=== PATIENT | male | born 1995 | race Caucasian/White ===

== ENCOUNTER 2017-05-27 20:53 | Inpatient (IN) | payer OTHER ==
[~2017-05-27] VITALS: Ht 170.2 cm; Wt 59.5 kg
[2017-05-27] MEDS ORDERED: NS 1,000 ML IV ONE ×2 (21:15→23:30)
[2017-05-27 21:25] LABS: BASO % 0.2 % (0.0-1.0); EOS # 0.1 K/mm3 (0.0-0.50); EOS % 0.5 % (0.0-3.0); LARGE UNSTAINED CELL # 0.1 K/mm3 (0.0-0.4); LARGE UNSTAINED CELL % 0.3 % (0.0-4.0); LYMPH # 1.6 K/mm3 (1.5-6.5); LYMPH % 6.6 % (24.0-44.0); MEAN CORPUSCULAR HEMOGLOBIN 30.8 pg (27.0-33.0); MEAN CORPUSCULAR HGB CONC 35.2 g/dl (32.0-36.5); MEAN CORPUSCULAR VOLUME 87.5 fl (80.0-96.0); NEUTROPHILS # 20.9 K/mm3 (1.8-7.7); NEUTROPHILS % 88.4 % (36.0-66.0); PLATELET COUNT, AUTOMATED 226 k/mm3 (150-450); RED CELL DISTRIBUTION WIDTH 12.1 % (11.5-14.5); WHITE BLOOD COUNT 23.7 K/mm3 (4.0-10.0)
[2017-05-27 21:25] LABS: ABG BASE EXCESS -2.6 (-2.0-2.0); ABG HCO3 22.7 MEQ/L (22.0-26.0); ABG PARTIAL PRESSURE O2 90.6 mmHg (75.0-100.0); ABG STANDARD HCO3 22.3 MEQ/L (22.0-26.0); ABG pH (ARTERIAL) 7.361 UNITS (7.350-7.450)
[2017-05-27 21:54] LABS: OSMOLALITY SERUM 290 MOSM/KG (275-295)
[2017-05-27 22:04] LABS: METHADONE URINE NEGATIVE (NEGATIVE)
[2017-05-27 22:34] LABS: ALBUMIN 4.5 GM/DL (3.2-5.2); ALBUMIN/GLOBULIN RATIO 1.41 (1.00-1.93); ALKALINE PHOSPHATASE 79 U/L (45-117); ALT/SGPT 23 U/L (12-78); ANION GAP 9 MEQ/L (8-16); AST/SGOT 19 U/L (15-37); BILIRUBIN,DIRECT 0.1 MG/DL (0.0-0.2); BILIRUBIN,TOTAL 0.5 MG/DL (0.2-1.0); BLOOD UREA NITROGEN 19 MG/DL (7-18); CALCIUM LEVEL 9.1 MG/DL (8.5-10.1); CARBON DIOXIDE LEVEL 26 MEQ/L (21-32); CHLORIDE LEVEL 102 MEQ/L (98-107); CREATININE FOR GFR 1.06 MG/DL (0.70-1.30); GLUCOSE, FASTING 93 MG/DL (70-105); POTASSIUM SERUM 3.4 MEQ/L (3.5-5.1); SODIUM LEVEL 137 MEQ/L (136-145); TOTAL PROTEIN 7.7 GM/DL (6.4-8.2)
[2017-05-28] MEDS ORDERED: NS 1,000 ML IV ONE (02:00)
[2017-05-28] MEDS ORDERED: NS 1,000 ML IV SCH (05:37)
[2017-05-28] MEDS ORDERED: ACETAMINOPHEN TAB 650MG DOSE (2X325MG) PO PRN (05:45)
--- NOTE | 2017-05-28 05:59 | HPEPDOC ---
General Date of Admission 05/28/2017 Other Providers PCP: [facility] Attending Physician: KAREL REYES MD Chief Complaint The patient is a 22-year-old male admitted with a reason for visit of Seizure/ Overdose. Source: Patient, Family History of Present Illness Mr. Connors is a 22-year-old male who is accompanied in the room by his . Apparently he has been going through quite a stressful time, and his recently had a miscarriage, therefore he was feeling quite depressed and decided to imbibe a 5 ounce bottle of cough syrup DM, which apparently did not provide sufficient inebriation, therefore he took 2 additional boxes of Coricidin HBP (both with the active ingredient dextromethorphan). Thereafter he got in the bed with his , became stiff, and had seizure-like activity, so he is brought to the emergency department for further evaluation. When I asked the patient what he remembers he says "I don't think I'm in a state of mind to answer that question" and then he and his tell me that he apparently was having hallucinations of aliens earlier, and he cannot remember anything from the event. He tells me that he took the medications to get high, however apparently he did mention to one nurse that he may have done it with an attempt to kill himself, therefore he does tell an inconsistent story. 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 Otherwise no medical history Surgical History None Family History Apparently there is no documented history in his family of mental disease or psychiatric history, but he suspects that some individuals of his family may have psychiatric problems. He also states that multiple members of his extended family suffer from alcoholism. Otherwise, no history of diabetes, stroke, heart disease. Social History * Smoker: cigarettes (socially) Alcohol: occationally Drugs: denies, marijuana (he has tried marijuana in past, but does not use this regularly) Psychosocial History: No pertinent psych hx Lives at home with his , no children. 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 Review of Symptoms Constitutional: Denies: Chills, Fever, Night Sweats Eyes: Denies: Pain, Vision change Skin: Denies: Rash, Lesions, Breakdown Pulmonary: Denies: Dyspnea, Cough Cardiovascular: Denies: Chest Pain, Orthopnea, Paroxysmal Noc. Dyspnea, Lt Headedness Gastrointestinal: Denies: Nausea, Vomiting, Abdominal Pain, Diarrhea Genitourinary: Denies: Dysuria, Frequency, Incontinence, Retention Hematologic: Denies: Bruising, Bleeding Excessively Neurological: Denies: Weakness, Numbness, Change in speech, Confusion Psych: Reports: Mood Normal, Denies: Depression, Memory Issues Physical Examination General Exam: Positive: Alert, Cooperative, No Acute Distress Eye Exam: Positive: PERRLA, Conjunctiva & lids normal, EOMI, Negative: Sclera icteric ENT Exam: Positive: Atraumatic, Mucous membr. moist/pink, Pharynx Normal Neck Exam: Positive: Supple, Negative: JVD, thyromegaly Chest Exam: Positive: Clear to auscultation, Normal air movement Heart Exam: Positive: Tachycardic, Regular Rhythm, Normal S1, Normal S2, Negative: Murmurs, Rubs Telemetry: Positive: Tachycardia Abdomen Exam: Positive: Normal bowel sounds, Soft, Negative: Tenderness, Hepatospenomegaly Extremity Exam: Positive: Normal pulses, Negative: Clubbing, Cyanosis, Edema Skin Exam: Positive: Nl turgor and temperature, Negative: Breakdown, Lesion Neuro Exam: Positive: Normal Speech, Cranial Nerves 3-12 NL Psych Exam: Positive: Mood NL, Oriented x 3 Vital Signs Vital Signs Date Time Temp Pulse Resp B/P (MAP) Pulse Ox O2 Delivery O2 Flow Rate FiO2 05/28/17 05:31 132 20 95 05/28/17 04:58 132/70 (90) 05/27/17 21:23 98.9 Laboratory Data Labs 24H Laboratory Tests 2 05/27/17 21:10: White Blood Count 23.7H, Red Blood Count 5.28, Hemoglobin 16.3, Hematocrit 46.2 , Mean Corpuscular Volume 87.5, Mean Corpuscular Hemoglobin 30.8, Mean Corpuscular Hemoglobin Concent 35.2, Red Cell Distribution Width 12.1, Platelet Count 226, Neutrophils (%) (Auto) 88.4H, Lymphocytes (%) (Auto) 6.6L, Monocytes (%) (Auto) 4.0, Eosinophils (%) (Auto) 0.5, Basophils (%) (Auto) 0.2, Neutrophils # (Auto) 20.9H, Lymphocytes # (Auto) 1.6, Monocytes # (Auto) 1.0H, Eosinophils # (Auto) 0.1, Basophils # (Auto) 0.0, Large Unclassified Cells % 0.3 , Large Unclassified Cells # 0.1, Anion Gap 9, Osmolality 290, Lactic Acid Level 2.4*H, Calcium Level 9.1, Aspartate Amino Transf (AST/SGOT) 19, Alanine Aminotransferase (ALT/SGPT) 23, Alkaline Phosphatase 79, Total Bilirubin 0.5, Direct Bilirubin 0.1, Total Creatine Kinase 141, Total Protein 7.7, Albumin 4.5 , Albumin/Globulin Ratio 1.41, Thyroid Stimulating Hormone (TSH) 1.790, Salicylates Level < 1.7L, Acetaminophen Level < 2.0L, Ethyl Alcohol Level < 0.003 05/27/17 21:11: Bedside Glucose (Misc Panel) 104 05/27/17 21:18: Blood Gas Bicarbonate Standard 22.3, Arterial Blood pH 7.361, Arterial Blood Partial Pressure CO2 41.0, Arterial Blood Partial Pressure O2 90.6, Arterial Blood Total CO2 24.0, Arterial Blood HCO3 22.7, Arterial Blood Base Excess -2.6L , Arterial Blood Oxygen Saturation 96.2 05/27/17 21:33: Urine Amphetamines Screen NEGATIVE, Urine Benzodiazepines Screen NEGATIVE, Urine Opiates Screen POSITIVEH, Urine Methadone Screen NEGATIVE, Urine Barbiturates Screen NEGATIVE, Urine Phencyclidine Screen POSITIVEH, Urine Cocaine Metabolite Screen NEGATIVE, Urine Cannabinoids Screen NEGATIVE 05/28/17 04:29: Lactic Acid Followup at 4 Hours 1.8 CBC/BMP Laboratory Tests 05/27/17 21:10 Red Blood Count 5.28, Mean Corpuscular Volume 87.5, Mean Corpuscular Hemoglobin 30.8, Mean Corpuscular Hemoglobin Concent 35.2, Red Cell Distribution Width 12.1 , Neutrophils (%) (Auto) 88.4 H, Lymphocytes (%) (Auto) 6.6 L, Monocytes (%) ( Auto) 4.0, Eosinophils (%) (Auto) 0.5, Basophils (%) (Auto) 0.2, Neutrophils # ( Auto) 20.9 H, Lymphocytes # (Auto) 1.6, Monocytes # (Auto) 1.0 H, Eosinophils # (Auto) 0.1, Basophils # (Auto) 0.0 Problems (1) Tachycardia (2) Dextromethorphan overdose Status: Acute Plan / VTE VTE Prophylaxis Ordered?: Yes (Lovenox) Plan Plan The patient does appear to be recovering from his dextromethorphan overdose, he is awake and alert and gives quite a good history when I'm speaking to him. He does have what appears to be an odd affect and strange speech, which may be complicated by the fact that he is a high functioning autistic, but his does state that this is abnormal for him and thinks that it is still the drugs. He also continues to be tachycardic. We will admit him to the PCU for further monitoring. Supportive care only at this time, we will run normal saline. Otherwise, he does not have any medications that he takes at home on a regular basis. It is important to note that dextromethorphan taken in high enough doses can cross react to give a false positive for opiates and PCP, which is consistent with his urine tox screen. Disposition Given that there is a possibility that this may have been an intentional overdose with possible suicidal ideations, he may merit from a psychiatric evaluation prior to discharge. GME ATTESTATION GME ATTESTATION My preceptor for this patient encounter was physically present in the building during the encounter and was fully available. As needed, all aspects of the patient interview, examination, medical decision making process, and medical care plan development were reviewed and approved by the preceptor. Preceptor is aware and concurs with the plan as stated in the body of this note and will attest to such by his/her cosignature. ATTENDING NOTE I have both independently examined this patient as well as reviewed the H&P. I have discussed in detail with the resident the findings and plan of treatment as documented in the residents note. I will continue to follow the patient and offer further guidance to the patients care as necessary during this hospital stay. DARREL Colindres MD, DO May 28, 2017 05:59 KAREL REYES MD May 28, 2017 18:41
[2017-05-28] MEDS ORDERED: POTASSIUM CHLORIDE 10 MEQ SR TABLET PO ONE (06:15)
[2017-05-28] MEDS ORDERED: OXAZEPAM 10 MG CAP PO PRN (06:15)
[2017-05-28] MEDS: KCL 20MEQ in NS 1000ML 1,000 ML IV SCH ×3 (06:20→19:33)
--- NOTE | 2017-05-28 06:39 | ECGEPIP ---
Stationary ECG Study [facility] - ED Test Date: 2017-05-27 Pat Name: IRIS EVANS Department: Room: [place] [address] Gender: M Thread Laster: : 1995 Requested By: BELINDA Ulloa Order Number: [id number] Reading MD: Pernell Lee Measurements Intervals [place] Rate: 145 P: 79 OK: 120 QRS: 100 QRSD: 109 T: 50 QT: 339 QTc: 528 Interpretive Statements ATRIAL FLUTTER, 2:1 RIGHT AXIS DEVIATION INCOMPLETE RIGHT BUNDLE BRANCH BLOCK NONSPECIFIC ST & T-WAVE ABNORMALITY NO PRIORS Electronically Signed On 05-28-2017 6:39:30 EDT by Pernell Lee
[2017-05-28 07:34] LABS: MEAN CORPUSCULAR HEMOGLOBIN 31.3 pg (27.0-33.0); MEAN CORPUSCULAR HGB CONC 35.5 g/dl (32.0-36.5); MEAN CORPUSCULAR VOLUME 88.3 fl (80.0-96.0); RED CELL DISTRIBUTION WIDTH 12.1 % (11.5-14.5); WHITE BLOOD COUNT 11.5 K/mm3 (4.0-10.0)
[2017-05-28 08:09] LABS: ANION GAP 7 MEQ/L (8-16); BLOOD UREA NITROGEN 12 MG/DL (7-18); CALCIUM LEVEL 9.3 MG/DL (8.5-10.1); CARBON DIOXIDE LEVEL 27 MEQ/L (21-32); CHLORIDE LEVEL 105 MEQ/L (98-107); CREATININE FOR GFR 1.15 MG/DL (0.70-1.30); GLUCOSE, FASTING 138 MG/DL (70-105); MAGNESIUM LEVEL 2.1 MG/DL (1.8-2.4); POTASSIUM SERUM 4.1 MEQ/L (3.5-5.1); SODIUM LEVEL 139 MEQ/L (136-145); T UPTAKE 38 % (33-40); THYROXINE (T4) 8.3 UG/DL (6.0-11.6)
[2017-05-28] MEDS ORDERED: ENOXAPARIN 40 MG/0.4 ML SYRINGE (J1650) SC SCH (09:00)
[2017-05-28] MEDS: ENOXAPARIN 40 MG/0.4 ML SYRINGE (J1650) SC SCH (11:37)
[2017-05-28 18:30] VITALS: BP 134/77
[2017-05-28 20:00] VITALS: BP 155/73
[2017-05-28 23:59] VITALS: BP 129/71
[2017-05-29] MEDS: KCL 20MEQ in NS 1000ML 1,000 ML IV SCH (01:35)
[2017-05-29 04:00] VITALS: BP 107/59
[2017-05-29 05:17] LABS: MEAN CORPUSCULAR HEMOGLOBIN 30.6 pg (27.0-33.0); MEAN CORPUSCULAR VOLUME 89.9 fl (80.0-96.0); RED CELL DISTRIBUTION WIDTH 12.2 % (11.5-14.5); WHITE BLOOD COUNT 7.1 K/mm3 (4.0-10.0)
[2017-05-29 05:23] LABS: ANION GAP 5 MEQ/L (8-16); BLOOD UREA NITROGEN 14 MG/DL (7-18); CALCIUM LEVEL 8.7 MG/DL (8.5-10.1); CARBON DIOXIDE LEVEL 28 MEQ/L (21-32); CHLORIDE LEVEL 109 MEQ/L (98-107); CREATININE FOR GFR 1.04 MG/DL (0.70-1.30); GLUCOSE, FASTING 97 MG/DL (70-105); POTASSIUM SERUM 4.3 MEQ/L (3.5-5.1); SODIUM LEVEL 142 MEQ/L (136-145)
[2017-05-29 07:15] VITALS: BP 115/69
[2017-05-29] MEDS: ENOXAPARIN 40 MG/0.4 ML SYRINGE (J1650) SC SCH (09:33)
[2017-05-29 10:34] VITALS: BP 133/73
--- NOTE | 2017-05-29 10:55 | DS.PDOC ---
Discharge Summary General Date of Admission May 28, 2017 at 06:07 Date of Discharge 05-29-17 Discharge Summary PROCEDURES PERFORMED DURING STAY: None ADMITTING DIAGNOSES: 1. Dextromethorphan O/D 2. Tachycardia DISCHARGE DIAGNOSES: 1. Dextromethorphan O/D 2. Tachycardia 3. Suicidal overdose 4. Major depression COMPLICATIONS/CHIEF COMPLAINT: Dextromethorphan Overdose/Tachycardia. HISTORY OF PRESENT ILLNESS: Mr. Connors is a 22-year-old male who presented to the ED after an apparent seizure like episode after he ingested a 5 ounce bottle of cough syrup DM along with 2 boxes of Coricidin HBP (both with the active ingredient dextromethorphan). HOSPITAL COURSE: On day of d/c the pt stated that he was feeling well, he stated he O/D to "get high" and denied wanting to do it to harm himself, although there had been a report to a nursing staff that the pt had said he did in fact want to end his life. As such psychiatry was asked to evalute the pt. The pt did initially show tachycardia in the ED, but during the hospital stay his fast heart rate had resolved. Pt was given fluids as supportive care while hospitalized. Psych recommended inpt. psych. hospitalization when bed becomes available. DISCHARGE MEDICATIONS: Please see below. ALLERGIES: Please see below. PHYSICAL EXAMINATION ON DISCHARGE: VITAL SIGNS: Please see below. GENERAL: pleasant, sitting up in bed eating breakfast, conversant HEENT: nares patent b/l, moist mucus membranes, EOMI, neck supple, trachea midline CARDIOVASCULAR EXAMINATION: RRR, normal s1 and s2, no murmurs or gallops appreciated RESPIRATORY EXAMINATION: CTA b/l, no wheezing, rales or rhonchi appreciated, good air expansion and effort ABDOMINAL EXAMINATION: NABSx4, no organomegaly, non-distended, no rebound tenderness or guarding. EXTREMITIES: no cyanosis, edema or clubbing SKIN: intact NEUROLOGICAL EXAMINATION: no focal deficits PSYCHIATRIC EXAMINATION: normal and appropriate affect LABORATORY DATA: Please see below. IMAGING: none performed on this stay PROGNOSIS: stable ACTIVITY: As tolerated DIET: as tolerated DISCHARGE PLAN: ON LICENSE OF [facility] DISPOSITION: ON LICENSE OF [facility] DISCHARGE INSTRUCTIONS: 1. TO ON LICENSE OF [facility] Follow with PCP and psych within 7-10 days of d/c of hospital ITEMS TO FOLLOWUP ON ON OUTPATIENT: 1. TO IM 1. Follow with PCP and psych within 7-10 days of d/c of hospital DISCHARGE CONDITION: Stable TIME SPENT ON DISCHARGE: Greater than 22 minutes. Vital Signs/I&Os Vital Signs Date Time Temp Pulse Resp B/P (MAP) Pulse Ox O2 Delivery O2 Flow Rate FiO2 05/29/17 07:15 97.7 63 16 115/69 (84) 98 Room Air I&O- Last 24 Hours up to 6 AM 05/29/17 06:00 Intake Total 3400 ml Output Total 1450 ml Balance 1950 ml Laboratory Data Labs 24H Laboratory Tests 2 05/29/17 04:46: Anion Gap 5L, Blood Urea Nitrogen 14, Creatinine 1.04, Sodium Level 142, Potassium Level 4.3, Chloride Level 109H, Carbon Dioxide Level 28, Calcium Level 8.7 CBC/BMP Laboratory Tests 05/29/17 04:46 Red Blood Count 4.58, Mean Corpuscular Volume 89.9, Mean Corpuscular Hemoglobin 30.6, Mean Corpuscular Hemoglobin Concent 34.0, Red Cell Distribution Width 12.2 , Calcium Level 8.7 Microbiology Microbiology 05/28/17 Blood Culture - Preliminary, Resulted No growth after 24 hours . All specim... 05/28/17 Blood Culture - Preliminary, Resulted No growth after 24 hours . All specim... Discharge Medications Scheduled PRN Trazodone HCl (Trazodone HCl) 50 Mg Tab, 50 MG PO QHSP PRN for INSOMNIA Allergies Coded Allergies: No Known Allergies (Unverified , 05/27/17) GME ATTESTATION GME ATTESTATION My preceptor for this patient encounter was physically present in the building during the encounter and was fully available. As needed, all aspects of the patient interview, examination, medical decision making process, and medical care plan development were reviewed and approved by the preceptor. Preceptor is aware and concurs with the plan as stated in the body of this note and will attest to such by his/her cosignature. KEN RUANO DO May 29, 2017 10:55 SARAH CARY MD Jun 14, 2017 11:08
[2017-05-29 14:00] VITALS: BP 140/74
--- NOTE | 2017-05-29 16:31 | CR ---
DATE OF CONSULTATION: 05/29/2017 LOCATION: Room 4208 CURRENT PSYCHIATRIC MEDICATIONS: None. CHIEF COMPLAINT: Overdose of dextromethorphan. 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 The patient had a seizure. The patient informed nursing staff that he had done this to end his life. He has been under stress recently. His just had a miscarriage. His , named Lyric, suffers from depression and suicidal ideation herself. She is in psychiatric treatment. The patient is also stressed by his involvement with the . He feels quite anxious about leaving home in the morning and going to work at [employer]. The patient states that his appetite has been decreasing. His weight has been stable. His concentration is poor. Level of energy is poor. He does have chronic insomnia for at least three years. He feels apathetic. He gets irritable easily. He denies having a temper problem. The patient states that he has a diagnosis of high level autism. He does admit to having poor social skills. The patient has been in the for approximately one year now. The patient has been in treatment at [facility]. He sees a therapist there. He is not sure what his psychiatric diagnosis is. He states that he is on no psychiatric medications however and that he has never been on any psychiatric medications. He denies previous history of alcoholism or substance use. MENTAL STATUS EXAMINATION: The patient is alert and oriented. Speech is delayed. His responses to my questions is often quite slow and impaired. He does report depressed mood. He reports possible panic attacks and high levels of anxiety. The patient has had recent suicidal ideation. Insight appears poor. Judgment is poor. The patient appears impulsive and is a potential danger to himself. He denies psychotic symptoms. No signs of auditory hallucinations. No delusions. No signs of thought disorder. The patient has possible Asperger syndrome. Memory functions appear intact. DIAGNOSES: 1. Major depression, recurrent. 2. Rule out panic/anxiety disorder. 3. Rule out autism spectrum disorder. PLAN: The patient can benefit from admission to the mental health unit when a bed becomes available.
[2017-05-29] MEDS ORDERED: MOM 30ML SUSPENSION UDC PO PRN (18:30)
[2017-05-29 22:00] VITALS: BP 135/63
[2017-05-30 06:00] VITALS: BP 109/67
[2017-05-30 06:05] LABS: MEAN CORPUSCULAR HEMOGLOBIN 30.6 pg (27.0-33.0); MEAN CORPUSCULAR HGB CONC 34.4 g/dl (32.0-36.5); MEAN CORPUSCULAR VOLUME 88.7 fl (80.0-96.0); WHITE BLOOD COUNT 6.6 K/mm3 (4.0-10.0)
[2017-05-30 06:18] LABS: BLOOD UREA NITROGEN 17 MG/DL (7-18); CREATININE FOR GFR 1.17 MG/DL (0.70-1.30); GLUCOSE, FASTING 96 MG/DL (70-105); SODIUM LEVEL 140 MEQ/L (136-145)
[2017-05-30 06:19] LABS: ANION GAP 7 MEQ/L (8-16); CALCIUM LEVEL 9.8 MG/DL (8.5-10.1); CARBON DIOXIDE LEVEL 29 MEQ/L (21-32); CHLORIDE LEVEL 104 MEQ/L (98-107); POTASSIUM SERUM 3.8 MEQ/L (3.5-5.1)
[2017-05-30] MEDS: ENOXAPARIN 40 MG/0.4 ML SYRINGE (J1650) SC SCH (08:49)
--- NOTE | 2017-05-30 09:57 | IPNPDOC ---
Subjective Date Seen The patient was seen on 05/30/17. Subjective Chief Complaint/HPI The patient is a 22-year-old male admitted with a reason for visit of Dextromethorphan Overdose/Tachycardia. Events since last encounter no complaints today, patient and his wants to speak with the psychiatrist Objective Physical Examination General Exam: Positive: Alert, Cooperative, No Acute Distress Eye Exam: Positive: PERRLA, Conjunctiva & lids normal, EOMI, Negative: Sclera icteric ENT Exam: Positive: Atraumatic, Mucous membr. moist/pink, Pharynx Normal Neck Exam: Positive: Supple, Negative: JVD, thyromegaly Chest Exam: Positive: Clear to auscultation, Normal air movement Heart Exam: Positive: Tachycardic, Regular Rhythm, Normal S1, Normal S2, Negative: Murmurs, Rubs Telemetry: Positive: Tachycardia Abdomen Exam: Positive: Normal bowel sounds, Soft, Negative: Tenderness, Hepatospenomegaly Extremity Exam: Positive: Normal pulses, Negative: Clubbing, Cyanosis, Edema Skin Exam: Positive: Nl turgor and temperature, Negative: Breakdown, Lesion Neuro Exam: Positive: Normal Speech, Cranial Nerves 3-12 NL Psych Exam: Positive: Mood NL, Oriented x 3 Assessment /Plan Problems (1) Suicidal overdose Status: Acute Problem Text: will continue with one to one observation patient will go to [facility] when bed becomes available. Dr Pabon would be able to speak with the patient and is this afternoon. (2) Dextromethorphan overdose Status: Acute Problem Text: suicidal attempt. (3) Major depression Status: Acute Problem Text: recurrent will go to [facility] rule out anxiety disorder and r/o autism spectrum disorder. Plan/VTE VTE Prophylaxis Ordered?: Yes (Lovenox) VS, I&O, 24H, Fishbone Vital Signs/I&O Vital Signs Date Time Temp Pulse Resp B/P (MAP) Pulse Ox O2 Delivery O2 Flow Rate FiO2 05/30/17 06:00 97.5 63 20 109/67 (81) 98 05/29/17 14:00 Room Air I&O- Last 24 Hours up to 6 AM 05/30/17 06:00 Intake Total 2340 ml Output Total 400 ml Balance 1940 ml Laboratory Data 24H LABS Laboratory Tests 2 05/30/17 05:23: Anion Gap 7L, Blood Urea Nitrogen 17, Creatinine 1.17, Sodium Level 140, Potassium Level 3.8, Chloride Level 104, Carbon Dioxide Level 29, Calcium Level 9.8 CBC/BMP Laboratory Tests 05/30/17 05:23 Red Blood Count 5.29, Mean Corpuscular Volume 88.7, Mean Corpuscular Hemoglobin 30.6, Mean Corpuscular Hemoglobin Concent 34.4, Red Cell Distribution Width 12.0 , Calcium Level 9.8 Microbiology Microbiology 05/28/17 Blood Culture - Preliminary, Resulted No Growth after 48 hours. All Specime... 05/28/17 Blood Culture - Preliminary, Resulted No Growth after 48 hours. All Specime... SARAH CARY MD May 30, 2017 09:57
[2017-05-30 14:00] VITALS: BP 115/74
[2017-05-30 22:00] VITALS: BP 128/61
[2017-05-31 06:00] VITALS: BP 119/74
[2017-05-31 06:23] LABS: MEAN CORPUSCULAR HEMOGLOBIN 31.1 pg (27.0-33.0); MEAN CORPUSCULAR HGB CONC 34.7 g/dl (32.0-36.5); MEAN CORPUSCULAR VOLUME 89.8 fl (80.0-96.0); WHITE BLOOD COUNT 6.7 K/mm3 (4.0-10.0)
[2017-05-31 06:29] LABS: ANION GAP 5 MEQ/L (8-16); BLOOD UREA NITROGEN 23 MG/DL (7-18); CALCIUM LEVEL 9.4 MG/DL (8.5-10.1); CARBON DIOXIDE LEVEL 32 MEQ/L (21-32); CHLORIDE LEVEL 104 MEQ/L (98-107); CREATININE FOR GFR 1.11 MG/DL (0.70-1.30); GLUCOSE, FASTING 99 MG/DL (70-105); POTASSIUM SERUM 4.2 MEQ/L (3.5-5.1); SODIUM LEVEL 141 MEQ/L (136-145)
--- NOTE | 2017-05-31 08:57 | IPNPDOC ---
Subjective Date Seen The patient was seen on 05/31/17. Subjective Chief Complaint/HPI The patient is a 22-year-old male admitted with a reason for visit of Dextromethorphan Overdose/Tachycardia. Events since last encounter Does not have any complaints today. patient stayed over the week end as no bed available in [facility]. I expect him to be discharged to [facility] today. no fever or chills, no chest pain or sob, no nausea or vomiting or diarrhea. Objective Physical Examination General Exam: Positive: Alert, Cooperative, No Acute Distress Eye Exam: Positive: PERRLA, Conjunctiva & lids normal, EOMI, Negative: Sclera icteric ENT Exam: Positive: Atraumatic, Mucous membr. moist/pink, Pharynx Normal Neck Exam: Positive: Supple, Negative: JVD, thyromegaly Chest Exam: Positive: Clear to auscultation, Normal air movement Heart Exam: Positive: Tachycardic, Regular Rhythm, Normal S1, Normal S2, Negative: Murmurs, Rubs Telemetry: Positive: Tachycardia Abdomen Exam: Positive: Normal bowel sounds, Soft, Negative: Tenderness, Hepatospenomegaly Extremity Exam: Positive: Normal pulses, Negative: Clubbing, Cyanosis, Edema Skin Exam: Positive: Nl turgor and temperature, Negative: Breakdown, Lesion Neuro Exam: Positive: Normal Speech, Cranial Nerves 3-12 NL Psych Exam: Positive: Mood NL, Oriented x 3 Assessment /Plan Problems (1) Suicidal overdose Status: Acute Problem Text: will continue with one to one observation patient will go to [facility] when bed becomes available. Dr Pabon would be able to speak with the patient and is this afternoon. (2) Dextromethorphan overdose Status: Acute Problem Text: suicidal attempt. (3) Major depression Status: Acute Problem Text: recurrent will go to [facility] rule out anxiety disorder and r/o autism spectrum disorder. Plan/VTE VTE Prophylaxis Ordered?: Yes (Lovenox) VS, I&O, 24H, Fishbone Vital Signs/I&O Vital Signs Date Time Temp Pulse Resp B/P (MAP) Pulse Ox O2 Delivery O2 Flow Rate FiO2 05/31/17 06:00 97.3 91 20 119/74 (89) 99 05/30/17 14:00 Room Air I&O- Last 24 Hours up to 6 AM 05/31/17 06:00 Intake Total 1980 ml Output Total 0 ml Balance 1980 ml Laboratory Data 24H LABS Laboratory Tests 2 05/31/17 05:38: Anion Gap 5L, Blood Urea Nitrogen 23H, Creatinine 1.11, Sodium Level 141, Potassium Level 4.2, Chloride Level 104, Carbon Dioxide Level 32, Calcium Level 9.4 CBC/BMP Laboratory Tests 05/31/17 05:38 Red Blood Count 5.21, Mean Corpuscular Volume 89.8, Mean Corpuscular Hemoglobin 31.1, Mean Corpuscular Hemoglobin Concent 34.7, Red Cell Distribution Width 12.0 , Calcium Level 9.4 Microbiology Microbiology 05/28/17 Blood Culture - Preliminary, Resulted No Growth after 72 hours. All specime... 05/28/17 Blood Culture - Preliminary, Resulted No Growth after 72 hours. All specime... SARAH CARY MD May 31, 2017 08:57
[2017-05-31] MEDS: ENOXAPARIN 40 MG/0.4 ML SYRINGE (J1650) SC SCH (09:44)
[2017-05-31 14:00] VITALS: BP 136/71
== END 2017-05-31 15:35 | disposition home or self-care (01) | DRG 918 ==
LOC: M ED 20:53 → M ED INP 05-28 06:07 → M PCU 05-28 18:23 → M MSPAV 05-29 10:30
PROVIDERS: ADMIT Hospitalist; ATTEND Internal Medicine Nephrology
DX: T48.3X4A Poisoning by antitussives, undetermined, initial encounter (principal); F33.9 Major depressive disorder, recurrent, unspecified; F84.0 Autistic disorder; R00.0 Tachycardia, unspecified; Z72.0 Tobacco use; F41.0 Panic disorder [episodic paroxysmal anxiety]

== ENCOUNTER 2017-05-31 15:35 | Inpatient (IN) | payer OTHER ==
[~2017-05-31] VITALS: Ht 170.2 cm; Wt 58.1 kg
[2017-05-31 15:51] VITALS: BP 138/63
[2017-05-31] MEDS ORDERED: traZODone 50 MG TAB PO PRN (16:45)
[2017-05-31] MEDS ORDERED: ACETAMINOPHEN TAB 650MG DOSE (2X325MG) PO PRN (16:45)
[2017-05-31] MEDS ORDERED: HALOPERIDOL 5 MG TAB PO PRN (16:45)
[2017-05-31] MEDS ORDERED: LORazepam 1 MG TAB PO PRN (16:45)
[2017-05-31] MEDS ORDERED: MAALOX 30 ML SUSP *UDC PO PRN (16:45)
[2017-05-31] MEDS ORDERED: MOM 30ML SUSPENSION UDC PO PRN (16:45)
[2017-06-01 06:25] VITALS: BP 115/59
--- NOTE | 2017-06-01 09:49 | HPEPDOC ---
Medical History and Physical Date of Admission May 31, 2017 at 15:35 History and Physical PCP: [facility] ATTENDING: Dr. Trevor Bond HPI: 22yoM admitted to [facility] for unspecified depressive disorder, being medically examined today. Patient was admitted to [facility] -05/31/17 related to overdose of dextromethorphan with seizure. The patient was medically stabilized and felt stable for transfer to [facility] 05/31/17. No acute medical complaints today. Denies any fevers, chills, weakness, fatigue, HENDRIX, CP, SOB, cough, palpitations, abdominal pain, N/V/D or changes in bowel or bladder habits. PMHx: High functioning autism depression PSHX: Denies SOCHX: Resides in: [facility], from [place] Marital Status: Kids: None Employment: Active duty Tobacco use: Occasional ETOH: Occasional Illicit Drugs: Marijuana in the past IV Drug Use: Denies Tattoos done unprofessionally: Denies FAMHX: Mother: Alive, well Father: Alive, well Siblings: One sister Alive, well Children: None Unexpected deaths due to medical reasons: None. ROS: As noted in HPI, otherwise 11pt ROS of systems reviewed and unremarkable. PE: GEN: 22 yo M, appears stated age. Well-nourished, well developed. No acute distress. Alert and oriented x 3. Pleasant, interactive. HEENT: Normocephalic, atraumatic. Pupils are equal, round, and reactive to light. Extraocular movements are intact. No nystagmus appreciated. Sclera are nonicteric. Conjunctiva without injection. Nose midline. Nasal turbinates without bogginess. EACs both patent BL. TMs both visualized and david with good cone of light, no bulging or erythema. No facial asymmetry. Moist mucous membranes. Dentition fair. Pharynx pink and moist, no cobblestoning. Neck supple , trachea midline. No lymphadenopathy or thyromegaly appreciated. CHEST: Regular rate and rhythm, +S1, +S2 LUNGS: Clear to auscultation bilaterally. No wheezes, rales, or rhonchi. Breathing appears symmetric and easy. Patient is speaking in full sentences. No accessory muscle use. ABD: Round, soft, non-tender, non-distended. +Bowel sounds throughout. No rebound or guarding. No costovertebral angle tenderness. EXT: Pulses 2+ bilaterally dorsalis pedis and radial. No lower extremity edema appreciated. SKIN: Lennon, dry, warm. Capillary refill <2sec. No rashes. NEURO: Alert and oriented x 3. Cranial nerves III-XII are intact. No focal deficits appreciated. EK05/27/17 ATRIAL FLUTTER, 2:1 RIGHT AXIS DEVIATION INCOMPLETE RIGHT BUNDLE BRANCH BLOCK NONSPECIFIC ST & T-WAVE ABNORMALITY NO PRIORS A&P: 22yoM admitted to [facility] for unspecified depressive disorder 1. Psych. Plan per Psychiatry. Update EKG. 2. Tachycardia. Resolved. Heart rate trends stable 80s to 90s. Update EKG. 3. Follow up with PCP on discharge. 4. Substance use. Per psychiatry. 5. Staff member Ty present throughout exam. Vital Signs Vital Signs Date Time Temp Pulse Resp B/P (MAP) Pulse Ox O2 Delivery O2 Flow Rate FiO2 06/01/17 06:25 97.3 95 18 115/59 (77) 05/31/17 15:51 97 Room Air Laboratory Data Labs 24H Item Value Date Time White Blood Count 6.7 K/mm3 05/31/17 0538 Red Blood Count 5.21 M/mm3 05/31/17 0538 Hemoglobin 16.2 g/dl 05/31/17 0538 Hematocrit 46.8 % 05/31/17 0538 Mean Corpuscular Volume 89.8 fl 05/31/17 0538 Mean Corpuscular Hemoglobin 31.1 pg 05/31/17 0538 Mean Corpuscular Hemoglobin Concent 34.7 g/dl 05/31/17 05 Red Cell Distribution Width 12.0 % 05/31/17 05 Platelet Count 218 k/mm3 05/31/17 0538 Sodium Level 141 MEQ/L 05/31/17 0538 Potassium Level 4.2 MEQ/L 05/31/17 0538 Chloride Level 104 MEQ/L 05/31/17 0538 Carbon Dioxide Level 32 MEQ/L 05/31/17 0538 Anion Gap 5 MEQ/L L 05/31/17 0538 Blood Urea Nitrogen 23 MG/DL H 05/31/17 0538 Creatinine 1.11 MG/DL 05/31/17 0538 Fasting Glucose 99 MG/DL 05/31/17 0538 Calcium Level 9.4 MG/DL 05/31/17 0538 Thyroid Stimulating Hormone (TSH) 0.837 uIU/ML 05/28/17 07 Free Thyroxine Index 3.2 % 05/28/1722 Thyroxine (T4) 8.3 UG/DL 05/28/17721 Triiodothyronine (T3) Uptake 38 % 05/28/17721 Salicylates Level < 1.7 MG/DL L 05/27/172109 Urine Opiates Screen POSITIVE H 05/27/172132 Urine Methadone Screen NEGATIVE 05/27/172132 Acetaminophen Level < 2.0 UG/ML L 05/27/172109 Urine Barbiturates Screen NEGATIVE 05/27/172132 Urine Phencyclidine Screen POSITIVE H 05/27/172132 Urine Amphetamines Screen NEGATIVE 05/27/172132 Urine Benzodiazepines Screen NEGATIVE 05/27/172132 Urine Cocaine Metabolite Screen NEGATIVE 05/27/172132 Urine Cannabinoids Screen NEGATIVE 05/27/172132 Ethyl Alcohol Level < 0.003 % 05/27/172109 Home Medications No Active Prescriptions or Reported Meds Allergies Coded Allergies: No Known Allergies (Unverified , 05/27/17) Sera Miles Jun 01, 2017 09:49
[2017-06-01 18:00] VITALS: BP 126/68
--- NOTE | 2017-06-01 20:43 | ECGEPIP ---
Stationary ECG Study [facility] Test Date: 2017-06-01 Pat Name: IRIS EVANS Department: Room: [place] [address] Gender: M Guest Relations Agent: RONNIE : 1995 Requested By: Sera Miles Order Number: [id number] Reading MD: Surya Dia Measurements Intervals Sheldon Rate: 70 P: 76 CO: 131 QRS: 90 QRSD: 103 T: 70 QT: 355 QTc: 385 Interpretive Statements SINUS RHYTHM WITH SINUS ARRHYTHMIA Within normal limits for age Electronically Signed On 06-01-2017 20:42:41 EDT by Surya Dia
--- NOTE | 2017-06-01 22:01 | MHHPEPDOC ---
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 He was admitted to Medicine for overdosing on Cough syrup ( dextrometorphan) and two containers of Coricidin ( 16 tablets each). He says "I was trying to get high, it was never my intention to kill myself" HISTORY OF THE PRESENT ILLNESS: Patient is a 22-year-old male, who has been at the Inpatient Mental Health Unit after he was transferred from the Medical Unit where he was admitted for an overdose on Coricidin and Dextrometorphan. Patient says his intention was "to get high" and adamantly denies wanting to kill himself. He reports he doesn't feel depressed but feels frustrated because he doesn't like the [employer], he doesn't like what he does. He describes himself as a person with lots of energy and he says his job "is boring" because "I don't do much". Reports his recently had a miscarriage and he feels this has affected him but not to the point of being depressed. He says his mother has been inappropriatte with his young and for that reason he hasn't spoken to her in approximately two months. He says he feels his mother is "paranoid schizophrenic" because she imagines things and then she believes these things are happening or are going to happen. Before he distanced from her she (his mother) imagined his was going to be unfaithful to him and she called his to warn her against doing such a thing. He says he knows he has been stressed out for all the previously mentioned reasons and for that reason he uses drugs. PSYCHIATRIC REVIEW OF SYSTEMS: Affective: Euthymic Anxiety: Moderate. Trauma: Denies Psychosis: Denies Personally: Needs further assessment PAST PSYCHIATRIC HISTORY: Prior Psychiatric Disorder: he says he has been diagnosed as having Asperger disorder at the [facility] Outpatient Treatment: [facility] Suicidal/Self injurious: Denies suicidal ideation and says recent overdose was accidental, not intentional. Psychotropic Medication History: Has never taken medications ALLERGIES: Please see below. FAMILY PSYCHIATRIC HISTORY: He says his mother has not been diagnosed with a psychiatric disorder but he thinks she has suffered depressive episodes and now , he thinks she is "paranoid schizophrenic" SOCIAL HISTORY: Early Relations/development: He says he had a good childhood, a good relationship with both parents. Sibling order: Three full blooded siblings ( 1 sister and two brothers), three step brothers. Has a 22 year old sister, then he comes in line and he has two twin brothers, age 8. Paternal relationships: Stopped interacting with mother two months ago, but he had a good relationship with her before this incident. he is close to his father who has been in the but is currently retired. Education: HS Diploma Occupational: Active duty soldier Legal: Denies Martial: , has no children. miscarried recently Economic: Denies financial problems at this time. Supports: His father and his Abuse/trauma: Denies SUBSTANCE ABUSE HISTORY: Coricidin and Dextrometorphan, he started using and abusing these substances about 7 months ago. He drinks alcohol PAST MEDICAL/SURGICAL HISTORY: 1. Unremarkable VITAL SIGNS: Stable MENTAL STATUS EXAMINATION: General appearance: Patient is a 22-year old male, who is alert, cooperative, pleasant with good eye contact, good hygiene. Speech: Spontaneous, fluid. Thought processes: Intact. Thought content: Goal directed, coherent. Abstract reasoning and computation: Fair. Description of associations: Not loose. Description of abnormal or psychotic thoughts: Denies suicidal ideation, homicidal ideation, psychotic thoughts. Judgment: Limited Insight: Limited Orientation: Oriented x 3 Recent and remote memory: Intact Attention span and concentration: Fair Fund of knowledge: Fair Mood: "I'm O.K." Affect: Euthymic.. DIAGNOSES: 1. Polysubstance use disorder 2. Unspecified stressor disorder ASSESSMENT: Patient denies symptoms of depression but admits to symptoms of anxiety. he admit having problems with drugs and alcohol. He says he started using alcohol since adolescence. PROBLEM LIST: 1. Risk for self harm 2. Risk for suicide. 3. Poor impulse control 4. Poor coping mechanisms 5. Substance abuse INITIAL TREATMENT PLAN: 1. Patient was admitted on a 9.39 2. Complete history was obtained. 3. With patients permission, family will be contacted and database will be expanded. 4. Patients medication regimen will be reviewed and changed accordingly. 5. Patient will be provided with protected environment. 6. Patient will be treated with individual, group, and milieu therapies. 7. Patient will receive supportive psych-education. 8. Discharge planning will commence immediately. 9. Outpatient follow-up treatment will be strongly recommended. 10. The initial treatment plan will focus initially on: * Depression. * Risk for suicide. * Substance abuse. ESTIMATED LENGTH OF STAY: 5-7 DAYS. TIME SPENT COUNSELING AND COORDINATING INITIAL CARE: 50 minutes. Medications No Active Prescriptions or Reported Meds Allergies Coded Allergies: No Known Allergies (Unverified , 05/27/17) ABEL AGARWAL MD Jun 01, 2017 22:01
[2017-06-02 06:29] VITALS: BP 132/58
[2017-06-02 18:05] VITALS: BP 120/58
[2017-06-03 06:28] VITALS: BP 106/54
[2017-06-03] MEDS ORDERED: TRAZO50TA PO (09:12)
--- NOTE | 2017-06-03 09:38 | IPN ---
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 Unspecified stressor disorder. 2. Polysubstance use disorder. SUBJECTIVE: Patient reports feeling fine, denies anxiety, denies depressive symptoms and denies suicidal ideation. Patient once again says that he did not overdose trying to kill himself, it was an accidental overdose, trying to get "high". OBJECTIVE: Patient is alert, oriented times three, pleasant, polite and cooperative. His mood and affect are euthymic, his thought processes is intact and his though content is coherent. His speech is linear, spontaneous and coherent. He denies suicidal thoughts, denies homicidal thoughts, denies auditory or visual hallucinations and denies thought delusions. His attention and concentration are good, his memory is good, his insight and judgment are improving, his impulse control has been fair at the inpatient mental health unit. He is oriented times three, his fund of knowledge is fair. His vital signs are normal, there are no new test results. MEDICATIONS: Patient currently is taking no medications although he has indicated lorazepam 50 mg by mouth daily at bedtime as needed for insomnia, he has almost not taken it and not required it. ASSESSMENT: Patient is stable, he is not depressed and he is not suicidal, he is not a danger to self or others. However, he has a substance abuse problem, quite severe, that almost cost his life. Today spring encaser, Gala Kaur, had a family meeting with his who expressed no concerns about him going back home. She was very supportive of him and she says that she will bring him back to the hospital if she feels that the patient is unsafe. She expressed that there is no big amount of medication at home but that she will make sure that the medication that they have will be safe and that she will make sure that he continues to be safe. Patient will be going to the substance abuse program at [place]. Will monitor closely and will followup. TIME SPENT: 30 minutes.
--- NOTE | 2017-06-03 23:42 | MHDSPDOC ---
[facility] Discharge Summary Discharge Summary DATE OF ADMISSION: May 31, 2017 at 15:35 DATE OF DISCHARGE: Jun 03, 2017 at 11:15 DISCHARGE DIAGNOSES: 1. Unspecified stressor disorder 2. 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 He says "I was trying to get high, it was never my intention to kill myself" He has been at the Inpatient Mental Health Unit after he was transferred from the Medical Unit where he was admitted for an overdose on Coricidin and Dextrometorphan. Patient says his intention was "to get high" and adamantly denies wanting to kill himself. He reports he doesn't feel depressed but feels frustrated because he doesn't like the [employer], he doesn't like what he does. He describes himself as a person with lots of energy and he says his job "is boring " because "I don't do much". Reports his recently had a miscarriage and he feels this has affected him but not to the point of being depressed. He says his mother has been inappropriatte with his young and for that reason he hasn't spoken to her in approximately two months. He says he feels his mother is "paranoid schizophrenic" because she imagines things and then she believes these things are happening or are going to happen. Before he distanced from her she (his mother) imagined his was going to be unfaithful to him and she called his to warn her against doing such a thing. He says he knows he has been stressed out for all the previously mentioned reasons and for that reason he uses drugs CONSULTANTS INVOLVED: None TREATMENT AND PROGRESS ON THE UNIT : Patient was not depressed,not anxious. he interacted with peers and staff appropriately, was not psychotic. he was not placed in medications because he didn't need them. He attended groups regularly because he voiced wanting to learn coping skills to avoid using drugs. HOSPITAL COURSE: Hen was stable, never had explosive outbursts, signs of psychosis, depression or alexandre. He was not impulsive or aggressive. DISCHARGE ASSESSMENT: Pt. was not a danger to self or others, was not suicidl, not homicidal, not psychotic. MENTAL STATUS EXAMINATION ON DISCHARGE: Patient is a 22-year old male, who is alert, cooperative, pleasant. Speech is normal Language skills are good. Thought processes including: Intact. Thought content: Coherent. Abstract reasoning, and computation: Fair. Description of associations: Good. Description of abnormal or psychotic thoughts: Not present. Judgment: Improved. Insight: Improved. Orientation to Oriented x 3. Recent and remote memory: Fair. Attention span and concentration: Fair. Language: Normal. Fund of knowledge: Fair. Mood: Euthymic. Affect: Congruent to mood, full range, reactive, appropriate. MEDICATIONS ON DISCHARGE: - Trazodone 100 mgs. PRN for insomnia PLAN/FOLLOWUP ARRANGEMENTS: He will follow up at [facility] and he will be attending a substance abuse treatment program at [facility] The amount of time spent in the coordination of care for this patient was approximately 40 minutes. Vital Signs/I&Os Vital Signs Date Time Temp Pulse Resp B/P (MAP) Pulse Ox O2 Delivery O2 Flow Rate FiO2 06/03/17 06:28 98.2 80 16 106/54 (71) 05/31/17 15:51 97 Room Air Medications Scheduled PRN Trazodone HCl (Trazodone HCl) 50 Mg Tab, 50 MG PO QHSP PRN for INSOMNIA, #4 Allergies Coded Allergies: No Known Allergies (Unverified , 05/27/17) ABEL AGARWAL MD Jun 03, 2017 23:42
== END 2017-06-03 11:15 | disposition home or self-care (01) | DRG 882 ==
LOC: M PSY 15:35
PROVIDERS: ADMIT Psychiatry & Neurology Psychiatry; ATTEND Psychiatry & Neurology Psychiatry
DX: F43.9 Reaction to severe stress, unspecified (principal); F55.8 Abuse of other non-psychoactive substances; Z63.8 Other specified problems related to primary support group; F84.5 Asperger's syndrome; F10.10 Alcohol abuse, uncomplicated